=== PATIENT | female | born 1975 | race African-American/Black ===

== ENCOUNTER 2017-09-14 10:17 | Emergency (ER) | payer OTHER ==
[~2017-09-14] VITALS: Ht 167.6 cm; Wt 116.2 kg
[2017-09-14 10:21] VITALS: BP 137/91
--- NOTE | 2017-09-14 10:25 | NUR ---
PATIENT AMBULATED TO BED 6.
--- NOTE | 2017-09-14 10:28 | NUR ---
REPORT GIVEN TO MANUEL HOLBROOK
--- NOTE | 2017-09-14 10:30 | NUR ---
PATIENT PRESENTS TO ED WITH COMPLAINTS OF RIGHT MEDIAL BACK PAIN THAT RADIATES TO UNDER RIGHT BREAST. SHE DESCRIBES PAIN SHARP AND CONTINUOUS. PATIENT DENIES TRAUMA. DENIES N/V/D; SKIN IS PINK/WARM/DRY; AAOX4 WITH EVEN AND STEADY GAIT; LUNGS CLEAR BL; HR EVEN AND REGULAR; PT DENIES ANY FEVER, CP, SOB, OR COUGH AT THIS TIME; PATIENT STATES PAIN OF 9/10 AT THIS TIME; VSS; PATIENT POSITIONED FOR COMFORT, SITTING UP IN CHAIR. ER MD MADE AWARE OF PT STATUS.
[2017-09-14] MEDS ORDERED: IBUPROFEN 800 MG TAB PO ONE (11:00)
[2017-09-14 11:53] VITALS: BP 137/91
--- NOTE | 2017-09-14 11:53 | NUR ---
Patient discharged with v/s stable. Written and verbal after care instructions given and explained. Patient alert, oriented and verbalized understanding of instructions. Ambulatory with steady gait. All questions addressed prior to discharge. ID band removed. Patient advised to follow up with PMD. Rx of ROBAXIN AND MOTRIN given. Patient educated on indication of medication including possible reaction and side effects. Opportunity to ask questions provided and answered.
== END 2017-09-14 11:53 | disposition home or self-care (01) ==
LOC: MED 10:17
DX: S29.012A Strain of muscle and tendon of back wall of thorax, initial encounter (principal); F12.10 Cannabis abuse, uncomplicated; X58.XXXA Exposure to other specified factors, initial encounter; Y93.89 Activity, other specified; Y99.8 Other external cause status; Y92.89 Other specified places as the place of occurrence of the external cause
CPT/HCPCS: 71045; 99283; Q0092